=== PATIENT | female | born 1960 | race Caucasian/White ===

== ENCOUNTER 2016-09-28 10:22 | Emergency (ER) | payer MEDICAID ==
[~2016-09-28] VITALS: Ht 165.1 cm; Wt 70.9 kg
[~2016-09-28 10:22] MED LIST: ALBU2.5V NPPB; ALBU90AE INH; FLUT1AER INH; LEVO750T6 PO; METH4TAB2 PO
[2016-09-28] MEDS ORDERED: TURM500C7 PO (10:51)
[2016-09-28] MEDS ORDERED: ACET600C5 PO (10:51)
[2016-09-28] MEDS ORDERED: methylPREDNISolone SOD SUCC 125 MG/2 ML ONE (11:28)
[2016-09-28] MEDS ORDERED: methylPREDNISolone SOD SUCC 125 MG/2 ML IVP ONE (11:30)
[2016-09-28] MEDS ORDERED: ALBUTEROL/IPRATROPIUM 2.5MG/0.5MG, 3 ML NPPB ONE (11:30)
[2016-09-28] MEDS ORDERED: SODIUM CHLORIDE FLUSH 10ML SYR IVF ONE (11:30)
[2016-09-28] MEDS ORDERED: ALBUTEROL/IPRATROPIUM 2.5MG/0.5MG, 3 ML ONE (11:41)
[2016-09-28 12:10] LABS: BLOOD UREA NITROGEN 15 mg/dL (7-18)
[2016-09-28 12:18] LABS: IS PT STATUS REG ER OR PRE ER? YES
[2016-09-28 12:39] VITALS: BP 132/84
== END 2016-09-28 12:55 | disposition home or self-care (01) ==
LOC: ED 11:06
DX: J44.1 Chronic obstructive pulmonary disease with (acute) exacerbation (principal); Z87.891 Personal history of nicotine dependence
CPT/HCPCS: 36415; 71010; 80048; 82040; 83880; 84484; 85025; 85379; 93005; 94640; 96374; 99285; J2930; J7620

== ENCOUNTER 2017-03-03 10:19 | Emergency (ER) | payer MEDICAID, OTHER ==
[~2017-03-03] VITALS: Ht 165.1 cm; Wt 72.4 kg
[~2017-03-03 10:19] MED LIST changes: +ACET600C5 PO; +TURM500C7 PO
[2017-03-03] MEDS ORDERED: ONDANSETRON 2MG/ML, 2ML IVPush ONE (11:00)
[2017-03-03] MEDS ORDERED: MORPHINE SULFATE 4 MG/ML, 1ML IVPush PRN (11:00)
[2017-03-03 11:09] LABS: HEMATOCRIT 42.3 % (34.6-47.8); HEMOGLOBIN 14.2 g/dL (11.7-16.4); WHITE BLOOD COUNT 13.1 x10^3/uL (3.4-10)
[2017-03-03 11:22] LABS: ASPARTATE AMINO TRANSFERASE 11 U/L (15-37); BLOOD UREA NITROGEN 17 mg/dL (7-18)
[2017-03-03] MEDS ORDERED: MORPHINE SULFATE 4 MG/ML, 1ML ONE (11:34)
[2017-03-03] MEDS ORDERED: ONDANSETRON 2MG/ML, 2ML ONE (11:34)
[2017-03-03] MEDS ORDERED: OMNIPAQUE 350 MG/ML, 100ML BOTTLE ONE (12:26)
[2017-03-03 13:35] VITALS: BP 145/87
== END 2017-03-03 13:37 | disposition home or self-care (01) ==
LOC: ED 12:54
DX: K57.31 Diverticulosis of large intestine without perforation or abscess with bleeding (principal); K65.9 Peritonitis, unspecified; G47.30 Sleep apnea, unspecified; Z87.891 Personal history of nicotine dependence
CPT/HCPCS: 36415; 74177; 80053; 81001; 83605; 85025; 87040; 87086; 96374; 96375; 99285; J2405; Q9967

== ENCOUNTER → 2017-05-16 | Outpatient (CLI) | payer MEDICAID, OTHER | END | disposition home or self-care (01) | LOC: CFH 08:11 | PROVIDERS: ATTEND Internal Medicine Critical Care Medicine | DX: J98.4 Other disorders of lung (principal); J43.9 Emphysema, unspecified | CPT/HCPCS: 71250 ==

== ENCOUNTER → 2018-10-21 | Outpatient (CLI) | payer MEDICAID, OTHER | END | disposition home or self-care (01) | LOC: CFH 09:17 | PROVIDERS: ATTEND Internal Medicine Critical Care Medicine | DX: J44.9 Chronic obstructive pulmonary disease, unspecified (principal) | CPT/HCPCS: 71250 ==